=== PATIENT | female | born 1995 | race Caucasian/White ===

== ENCOUNTER 2023-04-15 22:40 | Emergency (ER) | payer BC, OTHER ==
[2023-04-15] MEDS ORDERED: Dexamethasone 10 MG/ML VIAL ONE (23:10)
[2023-04-15 23:53] LABS: SARS-CoV-2 NAA Rapid Test Not Detected (NotDetected)
== END 2023-04-15 23:15 | disposition home or self-care (01) ==
LOC: ERS 22:40 → EEVIPCON 22:40 → ERS 23:15
DX: R50.9 Fever, unspecified (principal); R05.9 Cough, unspecified
CPT/HCPCS: 71045; 93005; 96372; J1100

== ENCOUNTER 2023-11-14 05:34 | Emergency (ER) | payer BC, OTHER ==
[2023-11-14] MEDS ORDERED: Raltegravir Potassium 400 MG TAB PO SCH (07:15)
== END 2023-11-14 07:48 | disposition home or self-care (01) ==
LOC: ERS 05:34 → EEVIPCON 05:34 → ERS 07:48
DX: Z57.9 Occupational exposure to unspecified risk factor (principal)
CPT/HCPCS: 99283